=== PATIENT | male | born 1985 | race Two or more races ===

== ENCOUNTER 2017-08-03 19:01 | Emergency (ER) | payer BC, OTHER | END 2017-08-03 22:17 | disposition left against medical advice (07) | LOC: M ED 19:01 | DX: H92.09 Otalgia, unspecified ear (principal); Z53.21 Procedure and treatment not carried out due to patient leaving prior to being seen by health care provider ==

== ENCOUNTER 2017-11-24 06:01 | Day surgery (SDC) | payer BC ==
[2017-11-24] MEDS: LR 1,000 ML IV (06:40)
[2017-11-24] MEDS ORDERED: MIDAZOLAM INJ 2 MG/2 ML VIAL (J2250) As Ordered (07:00)
[2017-11-24] MEDS ORDERED: fentaNYL 100 MCG/2 ML INJECTION (J3010) As Ordered (07:00)
[2017-11-24] MEDS ORDERED: ROCURONIUM BROMIDE 50 MG/5 ML VIAL As Ordered (07:01)
[2017-11-24] MEDS ORDERED: LIDOCAINE 2% INJ 100 MG/5 ML SDV (FOR ANES.) As Ordered (07:01)
[2017-11-24] MEDS ORDERED: PROPOFOL 200 MG/20 ML VIAL As Ordered (07:01)
[2017-11-24] MEDS ORDERED: dexameTHASONE 4 MG/ML 1ML VIAL (J1100) As Ordered ×2 (07:06)
[2017-11-24] MEDS ORDERED: ONDANSETRON 4MG/2ML VIAL (J2405) As Ordered (07:06)
[2017-11-24] MEDS: BUPIVACAINE/EPIN 0.5% 30 ML VIAL As Ordered (07:42)
[2017-11-24] MEDS: LIDOCAINE W/EPINEPHRINE 1% 20ML VIAL As Ordered (07:42)
[2017-11-24] MEDS: BUPIVACAINE HCL 0.5% 10 ML VIAL As Ordered (07:43)
[2017-11-24] MEDS: PERCOCET 5MG/325MG TAB PO ×2 (08:29→09:24)
[2017-11-24] MEDS ORDERED: ONDANSETRON 4MG/2ML VIAL (J2405) IV (08:30)
[2017-11-24] MEDS ORDERED: LR 1,000 ML IV ×2 (08:30)
[2017-11-24] MEDS ORDERED: NORCO, ANEXSIA 5/325MG TABLET (HYDROcodone/ACETAMINOPHEN) PO (08:30)
[2017-11-24] MEDS ORDERED: HYDROMORPHONE HCL 0.5 MG/ 0.5 ML SYRINGE (J1170 PER 1) IV (08:30)
[2017-11-24] MEDS ORDERED: fentaNYL 100 MCG/2 ML INJECTION (J3010) IV (08:30)
== END 2017-11-24 09:56 | disposition home or self-care (01) ==
LOC: M SDC 06:01
DX: J35.01 Chronic tonsillitis (principal); Z87.891 Personal history of nicotine dependence
CPT/HCPCS: 42826

== ENCOUNTER → 2019-07-10 | Outpatient (CLI) | payer BC ==
[~2019-07-10] MED LIST: IBUP1TAB7 PO
== END ==
LOC: M LABSMTC 10:00
PROVIDERS: ATTEND Family Medicine
DX: Z11.59 Encounter for screening for other viral diseases (principal); Z20.828 Contact with and (suspected) exposure to other viral communicable diseases

== ENCOUNTER → 2023-11-25 | Outpatient (CLI) | payer BC | LOC: M RAD 09:15 | PROVIDERS: ATTEND Internal Medicine Hematology & Oncology | DX: R94.5 Abnormal results of liver function studies (principal); K76.0 Fatty (change of) liver, not elsewhere classified ==

== ENCOUNTER 2025-02-23 18:50 | Emergency (ER) | payer BC ==
[~2025-02-23] VITALS: Ht 170.2 cm; Wt 100.0 kg
[2025-02-23 18:52] VITALS: BP 148/94; TEMP 97.8; O2SAT 99
[2025-02-23] MEDS: FLUORESCEIN OPHTH 1 MG STRIP OD ONE (19:15)
[2025-02-23] MEDS: TETRACAINE 0.5% OPHTH SOLN 4ML OD ONE (19:15)
== END 2025-02-23 19:40 | disposition home or self-care (01) ==
LOC: M ED 18:50
DX: H57.11 Ocular pain, right eye (principal); Z88.0 Allergy status to penicillin